=== PATIENT | female | born 1990 | race Caucasian/White ===

== ENCOUNTER 2024-03-15 23:52 | Emergency (ER) | payer BC, OTHER ==
[~2024-03-15] VITALS: Ht 167.6 cm; Wt 102.7 kg
[2024-03-16 00:30] VITALS: BP 140/72; TEMP 97.7; O2SAT 100
== END 2024-03-16 00:53 | disposition home or self-care (01) ==
LOC: M ED 23:52
DX: S67.195A Crushing injury of left ring finger, initial encounter (principal); W49.04XA Ring or other jewelry causing external constriction, initial encounter; Z88.1 Allergy status to other antibiotic agents; Y92.9 Unspecified place or not applicable; Y93.89 Activity, other specified; Y99.9 Unspecified external cause status